=== PATIENT | male | born 1950 | race Caucasian/White ===

== ENCOUNTER → 2023-09-07 07:13 | Outpatient (REF) | payer MEDICARE, OTHER, SELFPAY ==
[2023-09-07 08:26] LABS: % Basophils 0.7 % (0-2); % Eosinophils 7.7 % (0-6); % Immature Granulocytes 0.4 % (0-0.5); % Lymphocytes 39.5 % (20.5-51.1); % Monocytes 9.8 % (1.7-9.3); % Neutrophils 41.9 % (42.2-75.2); Absolute Eosinophils 0.4 10^3/uL (0-0.7); Absolute Lymphocytes 2.2 10^3/uL (1.2-3.4); Absolute Monocytes 0.6 10^3/uL (0.1-0.6); Absolute Neutrophils 2.4 10^3/uL (1.4-6.5); Hematocrit 41.9 % (39.0-52.0); Hemoglobin 14.3 g/dL (13.0-18.0); Mean Corp Hgb Conc. 34.1 g/dL (33.0-37.0); Mean Corpuscular Hgb 29.5 pg (27.0-31.0); Mean Corpuscular Volume 86.4 fL (80.0-94.0); Mean Platelet Volume 8.7 fL (7.4-10.4); Nucleated Red Blood Cells % 0 % (-); Platelet Count 210 10^3/uL (130-400); Red Blood Cell Count 4.85 10^6/uL (4.70-6.10); Red Cell Dist. Width 12.4 % (11.5-14.5); White Blood Cell Count 5.6 10^3/uL (4.8-10.8)
[2023-09-07 08:57] LABS: ALT (SGPT) 20 U/L (0-50); AST (SGOT) 23 U/L (17-59); Albumin 4.4 g/dl (3.5-5.0); Alkaline Phosphatase 76 U/L (38-126); Blood Urea Nitrogen 25 mg/dl (9-20); Calcium 9.4 mg/dl (8.4-10.2); Carbon Dioxide 26 mmol/L (22-30); Chloride 105 mmol/L (98-107); Glucose 98 mg/dl (70-99); HDL Cholesterol 44 mg/dl; Iron 137 ug/dl (49-181); LDL Cholesterol, Calculated 153 mg/dl; Potassium 4.2 mmol/L (3.5-5.1); Sodium 140 mmol/L (135-145); Total Bilirubin 1.1 mg/dl (0.2-1.3); Total Cholesterol 222 mg/dl (50-199); Total Protein 7.6 g/dl (6.3-8.2); Triglyceride 126 mg/dl (10-149); Very Low Density Lipoprotein 25 mg/dl (0-30); eGFR > 60.00
[2023-09-07 09:06] LABS: Percent Saturation 40 % (20-50); Total Iron Binding Capacity 342 ug/dl (261-462)
== END ==
LOC: REG 07:13
PROVIDERS: ATTENDING PHYSICIAN Family Medicine
DX: K21.9 Gastro-esophageal reflux disease without esophagitis (principal); I10 Essential (primary) hypertension; K58.0 Irritable bowel syndrome with diarrhea; G25.0 Essential tremor; E61.1 Iron deficiency; D51.9 Vitamin B12 deficiency anemia, unspecified
CPT/HCPCS: 36415; 80053; 80061; 83540; 83550; 85025

== ENCOUNTER → 2024-01-07 07:09 | Outpatient (REF) | payer MEDICARE, OTHER, SELFPAY ==
[2024-01-07 08:43] LABS: Free T4 0.96 ng/dl (0.78-2.19)
[2024-01-07 08:57] LABS: TSH 2.78 uIU/ml (0.47-4.68)
[2024-01-07 09:16] LABS: Vitamin B12 299 pg/ml (239-931)
[2024-01-07 11:54] LABS: Syphilis/T. pallidum Ab Reflex Negative (Negative)
== END ==
LOC: REG 07:09
PROVIDERS: ATTENDING PHYSICIAN Family Medicine
DX: R41.3 Other amnesia (principal)
CPT/HCPCS: 36415; 82607; 84439; 84443; 86780

== ENCOUNTER → 2024-01-14 06:35 | Outpatient (REF) | payer MEDICARE, OTHER, SELFPAY | LOC: MRI 06:35 | PROVIDERS: ATTENDING PHYSICIAN Specialist; FAMILY PHYSICIAN Family Medicine | DX: M25.512 Pain in left shoulder (principal); R26.89 Other abnormalities of gait and mobility | CPT/HCPCS: 70551; 73221 ==

== ENCOUNTER → 2024-04-19 07:37 | Outpatient (REF) | payer MEDICARE, OTHER, SELFPAY ==
[2024-04-19 10:31] LABS: Vitamin B12 453 pg/ml (239-931)
[2024-04-20 18:54] LABS: Intrinsic Factor Blocking Ab Negative (Negative)
== END ==
LOC: REG 07:37
PROVIDERS: ATTENDING PHYSICIAN Family Medicine
DX: E53.8 Deficiency of other specified B group vitamins (principal)
CPT/HCPCS: 36415; 82607; 86340